=== PATIENT | male | born 1940 | race Caucasian/White ===

== ENCOUNTER 2019-11-04 07:46 | Outpatient (CLI) | payer OTHER, SELFPAY ==
--- NOTE | 2019-11-04 07:52 | MR_ITS ---
WS: [id number] MRCP (MAGNETIC RESONANCE CHOLANGIOPANCREATOGRAPHY) HISTORY: F/U ON PANCREATIC MASS COMPARISON: 03/18/2019, 03/09/2018 TECHNIQUE: Multiple sequences are performed to evaluate the intra and extrahepatic ducts. Slightly lobulated cystic pancreatic duct lesion is again identified extending superiorly from the ma in body of the pancreas with connection to the main pancreatic duct. Cystic lesion measures 2.1 x 1.1 x 1.3 cm and is unchanged. There is mild beading and dilatation of the remaining pancreatic duct ita ecially distally. No new or increasing pancreatic cystic or solid masses. No bile duct dilatation. Co mmon bile duct is normal caliber. No intrahepatic duct dilatation. Liver is normal size. There is a c yst in the RIGHT lobe of the liver measuring 1.0 cm. Bilateral renal cysts have been previously descr ibed. The largest in the lower pole of the RIGHT kidney measures 3.0 cm diameter. No solid masses or obstruction. Abdominal aorta is tortuous and crosses to the RIGHT of midline. Atherosclerosis with no aneurysm. Th ere is no ascites or adenopathy appreciated. No pleural effusions. The visualized gallbladder is nega tive for acute inflammatory process. MR/MR MRCP [id number] IMPRESSION: 1. 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 Stable since the ost recent study but mildly more prominent since 03/09/2018. 2. Benign hepatic and renal cysts.
== END 2019-11-04 07:47 | disposition home or self-care (01) ==
LOC: RADSHAW 07:48
PROVIDERS: PCP Emergency Medicine Emergency Medical Services; Visit Provider Emergency Medicine Emergency Medical Services
DX: K86.89 Other specified diseases of pancreas (principal); N28.1 Cyst of kidney, acquired; K76.89 Other specified diseases of liver
CPT/HCPCS: 74181

== ENCOUNTER 2020-06-07 08:18 | Outpatient (CLI) | payer OTHER, SELFPAY ==
--- NOTE | 2020-06-07 08:39 | CT_ITS ---
WS: [id number] CT CHEST WITH INTRAVENOUS CONTRAST HISTORY: 3 MONTH FOLLOWUP, lung nodules. TECHNIQUE: Contiguous 5 mm axial imaging performed on the thorax. Coronal and sagittal reformats are submitted. All CT scans at [facility] use at least one of these dose optimization techniq ues: automated exposure control; mA and/or kV adjustment per patient size (includes targeted exams wh ere dose is matched to clinical indication); or iterative reconstruction. CONTRAST: Omnipaque 300; 95 mL IV. DLP: 758.11 mGycm COMPARISON: 08/04/2018, Lungs and central airway: Moderate pulmonary hyperexpansion from emphysema. No pneumonia or suspiciou s pulmonary nodules. There are a few areas of mild distal airways thickening. Pleura: Normal. No pleural effusion. Heart and pericardium: Normal size heart with no pericardial effusion. Mediastinum and belén: No mediastinal or hilar adenopathy. Very mild thickening of the esophagus may b e from reflux disease. Vessels: Mild ectasia and dilatation of aorta. Ascending aorta maximum diameter 4.2 cm is unchanged s baljit 2018. There are a few scattered calcified plaques within the aorta. Pulmonary artery size is nor mal. Chest wall and lower neck: No soft tissue masses. Upper abdomen: Bilateral renal cysts. The largest renal cyst on the LEFT is 2.0 cm. Hepatic cyst in t he RIGHT lobe measures 1.2 cm. Visualized gallbladder is negative. No adrenal mass. Mild atrophy of t he pancreas with calcifications. The entire pancreas is not visualized. Again noted is a small cyst e xtending above the pancreas may may be from intraductal papillary mucinous neoplasm. No change. Osseous structures: Straightening of the normal thoracic kyphosis. CT/CT chest w con* [id number] IMPRESSION: 1. Chronic emphysema. No pulmonary mass or pneumonia. No nodules. 2. Mild ectasia and dilatation of the descending thoracic aorta. Maximum diame ter 4.2 cm which is stable. 3. Bilateral renal cysts and hepatic cyst. 4. Mild esophageal wall thickening is probably from reflux disease.
[2020-06-07] MEDS: iohexol 300 mg/mL 100 mL Btl IV (09:04)
== END 2020-06-07 08:19 | disposition home or self-care (01) ==
LOC: RADWPI 08:18
PROVIDERS: PCP Emergency Medicine Emergency Medical Services; Visit Provider Emergency Medicine Emergency Medical Services
DX: R91.8 Other nonspecific abnormal finding of lung field (principal); J43.9 Emphysema, unspecified; I77.810 Thoracic aortic ectasia; Q61.02 Congenital multiple renal cysts; K76.89 Other specified diseases of liver
CPT/HCPCS: 71260; Q9967

== ENCOUNTER 2020-06-22 10:27 | Emergency (ER) | payer OTHER, SELFPAY ==
[2020-06-22 10:37] VITALS: BP 153/91; PULSE 114; RESP 16; TEMP 36.4; O2SAT 93; BMI 24.1
[2020-06-22 10:42] VITALS: BP 153/91; PULSE 91; RESP 16; O2SAT 96
[2020-06-22] MEDS: sodium chloride 0.9% 1,000 ML 999 ML IV (10:57)
[2020-06-22 11:01] VITALS: BP 155/90; PULSE 81; RESP 16; O2SAT 97
[2020-06-22 11:06] LABS: Basophils # 0.1 10^3/uL (0.0-0.1); Basophils % 0.8 %; Eosinophils # 0.3 10^3/uL (0.0-0.8); Eosinophils % 2.4 %; Hematocrit 46.4 % (42.0-52.0); Hemoglobin 15.7 g/dL (11.7-16.6); Lymphocytes # 0.8 10^3/uL (0.8-4.8); Lymphocytes % 7.4 %; Mean Corpuscular HGB Conc 33.8 g/dL (30.0-36.0); Mean Corpuscular Hemoglobin 30.7 pg (28.0-34.0); Mean Corpuscular Volume 90.6 fL (80-94); Mean Platelet Volume 11.4 fL (7.4-10.4); Monocytes # 0.9 10^3/uL (0.2-0.9); Monocytes % 8.8 %; Neutrophils # 8.42 10^3/uL (1.8-7.7); Neutrophils % 80.3 %; Nucleated Red Blood Cells % 0 %; Platelet Count 200 10^3/cmm (130-400); Red Blood Count 5.12 10^6/uL (4.1-5.3); Red Cell Distribution Width 13.4 % (12.1-15.1); White Blood Count 10.5 10^3/uL (4.0-10.0)
--- NOTE | 2020-06-22 11:31 | W.ED.MALEGU ---
HPI - Male Genitourinary General: Chief complaint: Urogenital-Male Stated complaint: blood in urine Time Seen by Provider: 06/22/20 10:36 History of Present Illness: HPI Narrative: This patient is a 79 year old male presenting with hematuria. He has no pain. He says this started yesterday and has gotten worse today. No dysuria. No fever. Onset (ago): day(s) (2) Associated symptoms: Reports hematuria; Deny nausea or vomiting Review of Systems General: Reports: 10 or more systems reviewed and unremarkable except in HPI and below Const: Denies: fever(s), chills, fatigue or malaise Eyes: Denies: change in vision ENMT: Denies: odynophagia Card: Denies: chest pain or swelling of feet/ankles Resp: Denies: dyspnea, productive cough or non-productive cough GI: Denies: abdominal pain, nausea or vomiting : Reports: hematuria Musc: Denies: neck pain or back pain Skin/Breast: Denies: rash Neuro: Reports: headache(s) (history of frequent severe headaches); Denies: numbness in extremities or weakness in extremities Marcus/Lymph: Denies: easy bruising or easy bleeding Physical Exam Const: COMMON NORMALS: no acute distress, patient oriented x3, no limitations and alert GENERAL APPEARANCE: cooperative and comfortable HENMT: HEAD & SCALP: normal to inspection FACE & SINUS: normal facial exam Eye: GENERAL EYE: appearance normal, both eyes and all related structures Neck/C-Spine: COMMON NORMALS: supple, no meningeal signs and no JVD Chest: COMMONS NORMALS: normal inspection of the chest Resp: COMMON NORMALS: normal respiratory effort, No use of accessory muscles and clear to auscultation bilaterally AUSCULTATION: clear to auscultation bilaterally Cardio: COMMON NORMALS: no JVD, regular rate, regular rhythm and No murmurs present (Cardio) RATE: regular rate RHYTHM: regular rhythm GI: COMMON NORMALS: Normal to inspection, nondistended, normoactive bowel sounds present, Soft to palpation and non-tender INSPECTION: Yes normal to inspection AUSCULTATION: Yes normoactive bowel sounds PALPATION: Yes Soft to palpation Back/Pelvis: COMMON NORMALS: thoracic and lumbar spine normal to inspection Extremity: COMMON NORMALS: normal to inspection Neuro: COMMON NORMALS: patient oriented x3, moves all extremities, no focal motor deficits and no sensory deficits noted SENSORIUM/ORIENTATION: Yes alert MENINGEAL SIGNS: Yes no meningeal signs Psych: COMMON NORMALS: mental status grossly normal, cooperative and normal affect Skin: COMMON NORMALS: no rashes or lesions noted and turgor normal GENERAL SKIN EXAM: no rashes or lesions noted and turgor normal Course ED course: Patient stable. Urine shows blood - perhaps mild infection. CT ordered initially but patient did not want to stay for that. He wanted to go home and follow up with his PCP. Also given referral to urology. Vital Signs: Vital signs: Vital Signs Temperature 97.5 F L 06/22/20 10:37 Pulse Rate 78 06/22/20 14:16 Respiratory Rate 20 H 06/22/20 14:16 Blood Pressure 134/99 06/22/20 14:16 Pulse Oximetry 96 06/22/20 14:16 MDM - Male Lab Data: Labs: Lab Results 06/22/20 06/22/20 06/22/20 Range/Units 10:57 10:57 10:57 WBC 10.5 H (4.0-10.0) 10^3/ uL RBC 5.12 (4.1-5.3) 10^6/u L Hgb 15.7 (11.7-16.6) g/dL Hct 46.4 (42.0-52.0) % MCV 90.6 (80-94) fL MCH 30.7 (28.0-34.0) pg MCHC 33.8 (30.0-36.0) g/dL RDW 13.4 (12.1-15.1) % Plt Count 200 (130-400) 10^3/c mm MPV 11.4 H (7.4-10.4) fL Neut % (Auto) 80.3 % Lymph % (Auto) 7.4 % Crenshaw % (Auto) 8.8 % Eos % (Auto) 2.4 % Baso % (Auto) 0.8 % Neut # (Auto) 8.42 H (1.8-7.7) 10^3/u L Lymph # (Auto) 0.8 (0.8-4.8) 10^3/u L Crenshaw # (Auto) 0.9 (0.2-0.9) 10^3/u L Eos # (Auto) 0.3 (0.0-0.8) 10^3/u L Baso # (Auto) 0.1 (0.0-0.1) 10^3/u L Nucleated RBC % (a uto) 0 % Nucleated RBCs # 0.0 /100WBC PT 14.50 (12.1-14.9) SECO NDS INR 1.09 (0.8-1.2) Sodium 140 (136-145) mmol/L Potassium 4.2 (3.5-5.1) mmol/L Chloride 104 (98-107) mmol/L Carbon Dioxide 27 (22-29) mmol/L Anion Gap 13.2 (5-19) BUN 15 (8-23) mg/dL Creatinine 0.7 (0.7-1.2) mg/dL GFR Calculation Not Reportable Glucose 135 H (65-115) mg/dL Calculated Osmolal ity 293 (285-295) mOsm/k g Calcium 9.5 (8.5-10.5) mg/dL Total Bilirubin 0.4 (0.15-1.2) mg/dL AST 12 (0-40) U/L ALT 11 (0-41) U/L Alkaline Phosphata se 80 (40-130) IU/L Total Protein 7.3 (6.6-8.7) g/dL Albumin 4.2 (3.5-5.2) g/dL Globulin 3.1 (1.3-4.6) g/dL Urine Color (Yellow) Urine Appearance (CLEAR) Urine pH (5-7) Ur Specific Gravit y (1.005-1.030) Urine Protein (Negative) Urine Glucose (UA) (Normal) Urine Ketones (Negative) Urine Blood (Negative) Urine Nitrate (Negative) Urine Bilirubin (Negative) Urine Urobilinogen (Negative) mg/dL Ur Leukocyte Kanchan ase (Negative) Urine RBC (0-2) /hpf Urine WBC (0-5) /hpf Ur Squamous Epith Cells (0-5) /hpf Amorphous Sediment Urine Bacteria (NONE) /hpf 06/22/ Range/Units 11:25 WBC (4.0-10.0) 10^3/ uL RBC (4.1-5.3) 10^6/u L Hgb (11.7-16.6) g/dL Hct (42.0-52.0) % MCV (80-94) fL MCH (28.0-34.0) pg MCHC (30.0-36.0) g/dL RDW (12.1-15.1) % Plt Count (130-400) 10^3/c mm MPV (7.4-10.4) fL Neut % (Auto) % Lymph % (Auto) % Crenshaw % (Auto) % Eos % (Auto) % Baso % (Auto) % Neut # (Auto) (1.8-7.7) 10^3/u L Lymph # (Auto) (0.8-4.8) 10^3/u L Crenshaw # (Auto) (0.2-0.9) 10^3/u L Eos # (Auto) (0.0-0.8) 10^3/u L Baso # (Auto) (0.0-0.1) 10^3/u L Nucleated RBC % (a uto) % Nucleated RBCs # /100WBC PT (12.1-14.9) SECO NDS INR (0.8-1.2) Sodium (136-145) mmol/L Potassium (3.5-5.1) mmol/L Chloride (98-107) mmol/L Carbon Dioxide (22-29) mmol/L Anion Gap (5-19) BUN (8-23) mg/dL Creatinine (0.7-1.2) mg/dL GFR Calculation Glucose (65-115) mg/dL Calculated Osmolal ity (285-295) mOsm/k g Calcium (8.5-10.5) mg/dL Total Bilirubin (0.15-1.2) mg/dL AST (0-40) U/L ALT (0-41) U/L Alkaline Phosphata se (40-130) IU/L Total Protein (6.6-8.7) g/dL Albumin (3.5-5.2) g/dL Globulin (1.3-4.6) g/dL Urine Color Red (Yellow) Urine Appearance Turbid (CLEAR) Urine pH 5 (5-7) Ur Specific Gravit y 1.020 (1.005-1.030) Urine Protein 1+ H (Negative) Urine Glucose (UA) Norm (Normal) Urine Ketones Negative (Negative) Urine Blood 3+ H (Negative) Urine Nitrate Negative (Negative) Urine Bilirubin Neg (Negative) Urine Urobilinogen Norm (Negative) mg/dL Ur Leukocyte Kanchan ase Negative (Negative) Urine RBC Too numerous to c nt H (0-2) /hpf Urine WBC None (0-5) /hpf Ur Squamous Epith Cells 0-4 H (0-5) /hpf Amorphous Sediment Not Reportable Urine Bacteria 1+ H (NONE) /hpf Discharge Plan Discharge Patient Disposition: Home Clinical Impression: Hematuria of unknown cause Condition: Stable Prescriptions: New Cipro 500 mg tablet 500 mg PO BID Qty: 20 RF: 0 hydrocodone-acetaminophen 5-325 mg tablet 1 tab PO Q6H PRN (Reason: pain) Qty: 14 RF: 0 Discharge Orders: Discharge ED (Routine); Ordered 06/22/20 Ordered By: Aaliyah Guzmán Referrals: Kumar Richardson MD [Physician] - Tyshawn Jeffries DO [Primary Care Provider] - Discharge Diet: Usual diet Discharge Activity: Resume usual activity Patient Instructions: Acute Hematuria (ED), Opioid Safety Activity Restrictions/Additional Instructions: Stop taking aspirin, excedrin, ibuprofen as these can increase bleeding. Follow up with Dr. Jeffries or Dr. Richardson for further evaluation of the bleeding. Return to the ED if fever, difficulty urinating, back or abdominal pain or any other new or concerning symptoms. Coding Level of Care Code ED Client Server Programmer for Krish Sykes
[2020-06-22 11:37] VITALS: BP 132/79; PULSE 73; O2SAT 95
[2020-06-22 11:40] LABS: INR 1.09 (0.8-1.2)
[2020-06-22 11:59] LABS: Alanine Aminotransferase 11 U/L (0-41); Albumin Level 4.2 g/dL (3.5-5.2); Alkaline Phosphatase 80 IU/L (40-130); Anion Gap 13.2 (5-19); Aspartate Amino Transferase 12 U/L (0-40); Blood Urea Nitrogen 15 mg/dL (8-23); Calcium 9.5 mg/dL (8.5-10.5); Carbon Dioxide 27 mmol/L (22-29); Chloride 104 mmol/L (98-107); Globulin 3.1 g/dL (1.3-4.6); Glucose 135 mg/dL (65-115); Osmolality Calculated 293 mOsm/kg (285-295); Potassium 4.2 mmol/L (3.5-5.1); Sodium 140 mmol/L (136-145); Total Bilirubin 0.4 mg/dL (0.15-1.2); Total Protein 7.3 g/dL (6.6-8.7)
[2020-06-22 13:06] LABS: Add Urine Microscopic? YES; Bilirubin Urine Neg (Negative); Blood Urine 3+ (Negative); Glucose Urine UA Norm (Normal); Ketones Urine Negative (Negative); Leukocyte Esterase Urine Negative (Negative); Nitrate Urine Negative (Negative); Protein Urine 1+ (Negative); Urine Appearance Turbid (CLEAR); Urine Color Red (Yellow); Urobilinogen Urine Norm (Negative); pH Urine 5 (5-7)
[2020-06-22 13:22] LABS: Bacteria Urine 1+ /hpf; RBC Urine TOO NUMEROUS TO CNT /hpf (0-2); Squamous Epithelial Cell Urine 0-4 /hpf (0-5)
[2020-06-22 13:23] LABS: Add Urine Culture? Yes
[2020-06-22 14:16] VITALS: BP 134/99; PULSE 78; RESP 20; O2SAT 96
== END 2020-06-22 14:14 | disposition home or self-care (01) ==
PROVIDERS: Emergency Provider Emergency Medicine; PCP Emergency Medicine Emergency Medical Services
DX: R31.9 Hematuria, unspecified (principal)
CPT/HCPCS: 80053; 81001; 85025; 85610; 87086; 96360; 99283; J7030

== ENCOUNTER 2020-07-07 13:09 | Outpatient (CLI) | payer OTHER, SELFPAY ==
--- NOTE | 2020-07-07 13:15 | CT_ITS ---
WS: [id number] CT scan of the abdomen and pelvis without Oral and IV contrast. Additional two-dimensional coronal a nd sagittal reconstruction was performed. 07/07/2020 Clinical Data: HEMATURIA Comparison: MRCP, 11/04/2019. DLP: 1067.[address] scans at [facility] use at least one of these dose optimization techniques: automat ed exposure control; mA and/or kV adjustment per patient size (includes targeted exams where dose is matched to clinical indication); or iterative reconstruction. Findings: The lower lungs show no nodules, masses or effusions. The liver, gallbladder, spleen and adrenal glands are normal. The small cystic structure superior to the main body of the pancreas is identified and measures 1.6 cm. The kidneys show bilateral nonobstructing central renal calculi and bilateral renal cysts. The larges t cyst at the inferior pole of the right kidney is 3.0 cm. The abdominal aorta is atherosclerotic with a largest diameter of 2.5 cm with calcification in the wa ll. No appendicitis or diverticulitis is seen. The stomach, small bowel and colon show no abnormaliti es. There is a large amount of fecal material in the colon. No abscess, adenopathy, ascites, mass, ob struction or free air is seen. The bladder is unremarkable. The prostate is enlarged. No inguinal her brook is seen. The bones of the lower thorax, lumbar spine, pelvis, and hips show osteoarthritic change and degenera tive disc narrowing of the lumbar spine. There is a dextroscoliosis of the lumbar spine and right hip narrowing.. CT/CT kidney stone [id number] Impression: 1. Small bilateral nonobstructing renal calculi and bilateral renal cysts. 2. No change in cystic structure of the body of the pancreas. 3. Negative for acute intra-abdominal or pelvic abnormalities.
== END 2020-07-07 13:10 | disposition home or self-care (01) ==
PROVIDERS: PCP Emergency Medicine Emergency Medical Services; Visit Provider Emergency Medicine Emergency Medical Services
DX: R31.9 Hematuria, unspecified (principal); N20.0 Calculus of kidney; Q61.02 Congenital multiple renal cysts
CPT/HCPCS: 74176

== ENCOUNTER 2020-09-25 07:48 | Outpatient (CLI) | payer OTHER, SELFPAY ==
--- NOTE | 2020-09-25 08:00 | XRR_ITS ---
PROCEDURE INFORMATION: Exam: XR Abdomen Exam date and time: 09/25/2020 8:00 AM Age: 80 years old Clinical indication: Condition or disease; Kidney or ureter condition; Calculus (stone) in kidney; Additional info: Bilateral kidney stones TECHNIQUE: Imaging protocol: XR of the abdomen. Views: Frontal supine view of the abdomen. 1 View. COMPARISON: MR MRCP [id number] 11/04/2019 8:12 AM FINDINGS: Gastrointestinal tract: See Organs finding. Organs: Multiple calcifications project on the left kidney measuring up to 4 mm in diameter. These were seen on a previous CT scan. The right kidney is obscured by bowel contents. No definite ureteral calculi are seen. There is a phlebolith in the right lower pelvis. Bones/joints: Chronic degenerative changes are present in the spine with sclerosis disc space narrowing and osteophytes. XR/XR KUB [id number] IMPRESSION: 1. Left nephrolithiasis. The right kidney is obscured by bowel contents. 2. 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
== END 2020-09-25 07:49 | disposition home or self-care (01) ==
LOC: RAD 07:50
PROVIDERS: PCP Emergency Medicine Emergency Medical Services; Visit Provider Urology
DX: N20.0 Calculus of kidney (principal); Z20.822 Contact with and (suspected) exposure to COVID-19; M47.9 Spondylosis, unspecified
CPT/HCPCS: 74018; 81003; 87635

== ENCOUNTER 2020-09-29 11:16 | Day surgery (SDC) | payer OTHER, SELFPAY ==
[2020-09-28 15:03] VITALS: BMI 24.4
[2020-09-29 11:41] VITALS: BP 115/87; PULSE 101; RESP 20; TEMP 36.7; O2SAT 97
[2020-09-29] MEDS: sodium chloride 0.9% 1,000 ML 30 ML IV (11:48)
--- NOTE | 2020-09-29 13:07 | P.HPUD_ITS ---
Surgery/Procedure H&P Update DATE OF PROCEDURE: September 29, 2020 DATE H&P PERFORMED: 09/25/20 H&P UPDATE INFORMATION: I have reviewed H&P completed within last 30 days, I have examined patient prior to procedure and H&P is in [facility] [place] EMR on date indicated CHANGES TO PREVIOUS DOCUMENTATION: Reviewed the procedure again. No questions PREOP DIAGNOSIS: Cystolithiasis PLANNED PROCEDURE: Operation Date: 09/29/20 13:00 Proposed Procedures p Cystolitholapaxy 74162 n21.0(Not Applicable) - Kumar Richardson MD s Cystoscopy(Not Applicable) - Kumar Richardson MD
[2020-09-29] MEDS: levofloxacin-dextrose 5 % 500 MG/100 ML PREMIX 100 MG IV (13:09)
--- NOTE | 2020-09-29 13:14 | ANES.PREANE2 ---
Pre-Anesthetic Assessment Pre-Anesthetic Assessment: Height/Weight: Height 1.8 m Weight 79.379 kg Temp Pulse Resp BP Pulse Ox 98.1 F 101 H 20 H 115/87 97 09/29/20 11:41 09/29/20 11:41 09/29/20 11:41 09/29/20 11:41 09/29/20 11:41 Preop Diagnosis: Cystolithiasis Proposed Procedure: Operation Date: 09/29/20 13:00 Proposed Procedures p Cystolitholapaxy 42772 n21.0(Not Applicable) - Kumar Rihcardson MD s Cystoscopy(Not Applicable) - Kumar Richardson MD Was Beta Xavier taken within 24 hours: N/A Was Clonidine taken within 24 hours: N/A Last intake: Intake Last Liquid Date 09/29/20 Last Liquid Time 04:00 Last Solid Date 09/28/20 Last Solid Time 00:00 Social: Social History: Tobacco and No alcohol Exam: Pre-Anes Outpt Exam: alert, oriented x 3 and regular rate & rhythm Airway: Cervical ROM: WNL MP: 2 Dentition: Chipped and Loose Additional comments: Very poor dentition Pulmonary: Pulmonary: COPD : Comments: BPH, hematuria Musc/skel: Musc/skel: OA/DJD Anesthetic Plan: ASA status: 3 Anesthesia: General Risk of > 500 ml blood loss (7ml/kg in children): No Meds/Allergies Current Medications: Current Medications Generic Name Dose Route Start Last Admin Trade Name Freq PRN Reason Stop Dose Admin Sodium Chloride 1,000 mls @ 30 ml s/hr 09/29/20 11:30 09/29/20 11:48 Sodium Chloride 0.9% IV 09/30/20 11:29 30 mls/hr .Q24H AVIVA Administration PFSH Anesthesia PFSH: Medical History (Updated 09/25/20 @ 09:28 by Kumar Richardson MD) Ascending aorta dilatation Bilateral renal cysts Bilateral renal stones Bladder stone BPH loc w urin obs/LUTS Carotid stenosis Hyperlipemia Hypertension Personality disorder Surgical History (Updated 09/25/20 @ 09:05 by Kumar Richardson MD) History of right knee joint replacement Family History Brother Diabetes Father , IN LATE 80'S No problems noted. Mother , AT AGE 63 Cancer BRAIN TUMOR OPERATION Denies family history of CAD (coronary artery disease) Psychiatric illness Suicide Family history of premature coronary artery disease Hypertension Stroke Social History Smoking and tobacco status: former smoker (QUIT 30 YEARS AGO) Quit status (tobacco): has quit using tobacco Year quit tobacco: 1967 Second hand smoke exposure: Yes () Alcohol intake: former Year of sobriety/quit date alcohol: 4 Former alcohol use details: QUIT 1964 Household members: spouse Marital status: Number of children: 0 service: Yes Current occupational status: disabled History of recent travel: No Data Anesthesia Cardiac Studies: No Data to Display
--- NOTE | 2020-09-29 13:49 | PM.OP ---
Operative Report Date of procedure: September 29, 2020 Pre-op Diagnosis: Cystolithiasis Post-op Diagnosis: No residual stone. Presumed spontaneous passage Procedure Done: Cystoscopy under anesthesia Specimens removed/disposition: None Pathology: none sent Surgeon: Debra Anesthesia: General Estimated blood loss: Minimal Urine output: Not measured Complications: None Findings: The small stone seen in the clinic was no longer present in the bladder. Presumption is spontaneous passage although he was unaware of that. Condition: stable Disposition: PACU Brief History: Mr. Alvarado is a delightful 80-year-old white male recently evaluated for gross [facility] scan showed no gross upper urinary tract abnormality and cystoscopy in the clinic showed a small bladder stone. He was admitted for cystolitholapaxy or removal of bladder stone intact pending size assessment. Procedure: After routine preoperative evaluation examination and obtaining of informed consent he was taken to the operating suite on 09/29/20 where general anesthesia was administered without difficulty after appropriate timeout was performed, SCDs confirmed to be functioning, preoperative antibiotics administered, beta-gina protocol confirmed. Prepped and draped in usual sterile fashion in dorsolithotomy position paying careful attention to avoiding pressure points. 21 Turkish cystoscope with 30 degree lens was introduced into the urethral meatus and advanced into the bladder under videoscopy. The bladder was systematically examined both 30 and 70 degree lens and the stone was not seen. Flexible cystoscope was then utilized in both direct and retroflexed position and the finding of no stone was confirmed. The patient was unaware of having passed the stone but obviously he must have. After final reinspection with 30 and 70 degree lens the procedure was completed. The bladder was drained. Tolerated procedure well without complications and was awakened in the operating room and returned to the recovery room in stable condition. PLANS: 1. Discharge from outpatient surgery is anticipated today 2. Follow-up in 6 months with [facility]
[2020-09-29 13:54] VITALS: BP 132/74; PULSE 94; RESP 16; TEMP 36.3; O2SAT 98
[2020-09-29 14:00] VITALS: BP 111/83; PULSE 85; RESP 17; O2SAT 97
[2020-09-29 14:05] VITALS: BP 114/80; PULSE 77; RESP 18; O2SAT 98
[2020-09-29 14:10] VITALS: BP 127/87; PULSE 77; RESP 16; TEMP 36.4; O2SAT 98
[2020-09-29 14:38] VITALS: BP 118/80; PULSE 78; RESP 18; TEMP 36.4; O2SAT 98
--- NOTE | 2020-09-29 15:28 | ANE.PACU2 ---
Inpatient post-anesthesia follow up: Airway intact: Yes Vital signs: Temperature 97.6 F Pulse Rate 78 Respiratory Rate 18 Blood Pressure 118/80 Pulse Oximetry 98 Oxygen Delivery Me thod Room Air Oxygen Flow Rate 8 Fraction of Inspir ed Oxygen Hydration adequate: Yes Nausea and vomiting: No Pain level: 1 Mental status: Baseline
== END 2020-09-29 14:45 | disposition home or self-care (01) ==
PROVIDERS: PCP Emergency Medicine Emergency Medical Services; Visit Provider Urology
PROC: 0TJB8ZZ Inspection of Bladder, Via Natural or Artificial Opening Endoscopic (ICD-10-PCS; CPT 52000; 2020-09-29 13:00)
DX: N21.0 Calculus in bladder (principal); J44.9 Chronic obstructive pulmonary disease, unspecified; M19.90 Unspecified osteoarthritis, unspecified site; N40.1 Benign prostatic hyperplasia with lower urinary tract symptoms; N13.8 Other obstructive and reflux uropathy; E78.5 Hyperlipidemia, unspecified; I10 Essential (primary) hypertension; Z87.891 Personal history of nicotine dependence
CPT/HCPCS: 52000; J1956; J2405; J2704; J3010; J7030

== ENCOUNTER 2020-09-30 08:39 | Emergency (ER) | payer OTHER, SELFPAY ==
[2020-09-30 08:46] VITALS: BP 129/81; PULSE 108; RESP 20; TEMP 36.8; O2SAT 96; BMI 20.2
--- NOTE | 2020-09-30 08:54 | W.ED.DENTAL ---
HPI - Dental/Oral General: Chief complaint: Dental/Oral Stated complaint: DENTAL PAIN Time Seen by Provider: 09/30/20 08:45 History of Present Illness: HPI Narrative: Patient is a 80-year-old male comes to the ED with dental pain. Patient has been having dental pain for the past couple days. He describes his dental pain as throbbing and he rates it a 10 out of 10. It is located in the back lower right molar region. Denies any other symptoms. Patient is going to contact the dentist on Friday to be evaluated. Associated symptoms: Denies fever(s) or odynophagia Review of Systems Const: Denies: fever(s), chills or fatigue Eyes: Denies: change in vision or eye discomfort ENMT: Reports: dental pain (back bottom right molars); Denies: throat pain, odynophagia, nasal discharge or nasal congestion Card: Denies: chest pain, palpitations, edema, swelling of feet/ankles, dyspnea on exertion or orthopnea Resp: Denies: dyspnea, productive cough or non-productive cough GI: Denies: abdominal pain, nausea, vomiting, diarrhea, constipation or hematochezia : Denies: flank pain, difficulty urinating, dysuria or hematuria Musc: Denies: neck pain, back pain or extremity swelling Skin/Breast: Denies: rash or new lesions Neuro: Denies: headache(s), numbness in extremities or weakness in extremities PFS ED PFSH: Medical History Ascending aorta dilatation Bilateral renal cysts Bilateral renal stones Bladder stone BPH loc w urin obs/LUTS Carotid stenosis Hyperlipemia Hypertension Personality disorder Surgical History History of right knee joint replacement Family History Brother Diabetes Father , IN LATE 80'S No problems noted. Mother , AT AGE 63 Cancer BRAIN TUMOR OPERATION Denies family history of CAD (coronary artery disease) Psychiatric illness Suicide Family history of premature coronary artery disease Hypertension Stroke Social History Smoking and tobacco status: former smoker (QUIT 30 YEARS AGO) Quit status (tobacco): has quit using tobacco Year quit tobacco: 1967 Second hand smoke exposure: Yes () Alcohol intake: former Year of sobriety/quit date alcohol: 4 Former alcohol use details: QUIT 1964 Household members: spouse Marital status: Number of children: 0 service: Yes Current occupational status: disabled History of recent travel: No Physical Exam Const: COMMON NORMALS: no acute distress, patient oriented x3 and alert GENERAL APPEARANCE: cooperative and comfortable HENMT: COMMON NORMALS: normocephalic HEAD & SCALP: normocephalic MOUTH: Normal oral and palatal mucosa present TEETH & GINGIVA: Yes abnormal tooth and associated gingiva lower right third molar tender, with associated gingival edema and other (severe dental caries), Yes caries and Yes poor dentition THROAT: posterior oropharynx normal and uvula midline Neck/C-Spine: COMMON NORMALS: supple GENERAL: Yes normal visual inspection Resp: COMMON NORMALS: normal respiratory effort, No retractions, No use of accessory muscles and clear to auscultation bilaterally AUSCULTATION: clear to auscultation bilaterally Cardio: COMMON NORMALS: regular rate, regular rhythm, S1 normal heart sound present, S2 normal heart sound present, No gallops present (Cardio), No clicks present (Cardio), No murmurs present (Cardio) and Peripheral pulses 2+ throughout RATE: regular rate RHYTHM: regular rhythm HEART SOUNDS: S1 normal heart sound present and S2 normal heart sound present PERIPHERAL PULSES: Peripheral pulses 2+ throughout GI: COMMON NORMALS: Normal to inspection, nondistended, normoactive bowel sounds present, Soft to palpation, non-tender and no masses PALPATION: Yes Soft to palpation : COMMON NORMALS: Yes no CVA tenderness BLADDER/KIDNEY EXAM: Yes no CVA tenderness Back/Pelvis: COMMON NORMALS: no CVA tenderness Extremity: COMMON NORMALS: normal to inspection Neuro: COMMON NORMALS: patient oriented x3 and moves all extremities SENSORIUM/ORIENTATION: Yes alert Skin: GENERAL SKIN EXAM: dry skin Course Vital Signs: Vital signs: Vital Signs Temperature 98.3 F 09/30/20 08:46 Pulse Rate 90 09/30/20 09:15 Respiratory Rate 16 09/30/20 09:15 Blood Pressure 124/66 09/30/20 09:15 Pulse Oximetry 95 09/30/20 09:15 MDM - Dental/Oral MDM Narrative: Medical decision making narrative: Patient is a 80-year-old male comes the ED with dental pain. He has extensive dental caries and very poor dentition. He was discharged with a prescription for clindamycin and tramadol for pain. Return to ED precautions given. Patient is going to contact his dentist on Friday to get an appointment set up. Patient understood and agree with plan. Discharge Plan Discharge Patient Disposition: Home Clinical Impression: Pain due to dental caries Condition: Stable Prescriptions: New clindamycin HCl 150 mg capsule 300 mg PO QID 7 Days Qty: 56 RF: 0 No Action aspirin 325 mg tablet 975 mg PO DAILY PRN (Reason: pain) RF: 0 tamsulosin 0.4 mg capsule 0.4 mg PO QDAY Qty: 14 RF: 1 Discharge Orders: Discharge ED (Routine); Ordered 09/30/20 Ordered By: Jordan Bright Referrals: Tyshawn Jeffries, DO [Primary Care Provider] - Discharge Diet: Regular Discharge Activity: Resume usual activity Patient Instructions: Tramadol (By mouth), Dental Caries (ED) Activity Restrictions/Additional Instructions: Call and get scheduled with the dentist as soon as possible to get your dental pain evaluated. Take medications as prescribed. Return to the ER or your medical provider if condition worsens. Please read and understand discharge instructions. Thank you for choosing [facility] for your healthcare needs today. Please realize this is an emergency room and that we are providing you with a medical screening exam and this may not be complete and all inclusive of all the testing and or work up that you may need to determine your ailment or severity of your illness. It is very important that you follow up as instructed or that you return to the Emergency Department should you have concerns or if your condition changes or worsens in any way. Coding Level of Care Code ED Fancy Stitcher for Krish Sykes Exam Comprehensive
[2020-09-30] MEDS: clindamycin 150 mg Capsule 300 MG PO (09:05)
[2020-09-30] MEDS: HYDROcodone-acetaminophen 7.5-325 mg Tablet 1 TAB PO (09:05)
[2020-09-30 09:15] VITALS: BP 124/66; PULSE 90; RESP 16; O2SAT 95
== END 2020-09-30 09:15 | disposition home or self-care (01) ==
PROVIDERS: Emergency Provider Physician Assistant; PCP Emergency Medicine Emergency Medical Services
DX: K02.9 Dental caries, unspecified (principal); Z79.82 Long term (current) use of aspirin; E78.5 Hyperlipidemia, unspecified; I10 Essential (primary) hypertension; Z87.891 Personal history of nicotine dependence
CPT/HCPCS: 99283

== ENCOUNTER 2020-10-05 09:19 | Emergency (ER) | payer OTHER, SELFPAY ==
[2020-10-05 09:33] VITALS: BP 100/71; PULSE 119; RESP 20; TEMP 36.8; O2SAT 93; BMI 19.5
--- NOTE | 2020-10-05 10:35 | ED_ITS ---
HPI - Weakness General: Chief complaint: Weakness Stated complaint: N/v, Hot flashes, weak Time Seen by Provider: 10/05/20 10:23 History of Present Illness: HPI Narrative: 80-year-old male complaint of nausea vomiting hot flashes generally feeling weak. Patient was seen recently for dental infection was started on clindamycin he stopped taking because of this headache and stomach he denies any chest pain he has had some upper back pain which has been chronic. He also has some nausea and vomiting although it has improved since he stopped the clindamycin. MD Complaint: generalized weakness Onset (ago): day(s) Duration: intermittent Location: generalized Migration: none Severity: mild Relieving factors: none Exacerbating factors: none Associated symptoms: Reports chills and nausea; Denies chest pain, confusion, melena, decreased appetite, diaphoresis, dysuria, easy bruising, fever(s), headache(s), myalgias, rash, short of breath, syncope or vomiting Review of Systems Const: Reports: chills; Denies: fever(s) or diaphoresis ENMT: Denies: throat pain, ear or mastoid pain, nasal discharge or nasal congestion Card: Denies: chest pain or syncope Resp: Denies: dyspnea, productive cough or non-productive cough GI: Reports: nausea; Denies: vomiting or melena : Denies: dysuria Skin/Breast: Denies: rash or pruritus Neuro: Denies: headache(s) or confusion Marcus/Lymph: Denies: easy bruising PFSH ED PFSH: Medical History Ascending aorta dilatation Bilateral renal cysts Bilateral renal stones Bladder stone BPH loc w urin obs/LUTS Carotid stenosis Hyperlipemia Hypertension Personality disorder Surgical History History of right knee joint replacement Family History Brother Diabetes Father , IN LATE 80'S No problems noted. Mother , AT AGE 63 Cancer BRAIN TUMOR OPERATION Denies family history of CAD (coronary artery disease) Psychiatric illness Suicide Family history of premature coronary artery disease Hypertension Stroke Social History Smoking and tobacco status: former smoker (QUIT 30 YEARS AGO) Quit status (tobacco): has quit using tobacco Year quit tobacco: 1967 Second hand smoke exposure: Yes () Alcohol intake: former Year of sobriety/quit date alcohol: 4 Former alcohol use details: QUIT 1964 Household members: spouse Marital status: Number of children: 0 service: Yes Current occupational status: disabled History of recent travel: No Physical Exam Const: COMMON NORMALS: no acute distress GENERAL APPEARANCE: cooperative and comfortable ORIENTATION/CONSCIOUSNESS: Yes awake, Yes oriented to person, Yes oriented to place and Yes oriented to time HENMT: COMMON NORMALS: normocephalic, atraumatic and hearing grossly normal bilaterally HEAD & SCALP: normocephalic and atraumatic Neck/C-Spine: COMMON NORMALS: full ROM, no lymphadenopathy, supple and no JVD Lymph: LYMPHATIC: no lymphadenopathy noted and no lymphedema noted Resp: COMMON NORMALS: normal respiratory effort, No retractions and No use of accessory muscles AUSCULTATION: rhonchi and wheezes Cardio: COMMON NORMALS: no JVD, regular rate, regular rhythm and No murmurs present (Cardio) RATE: regular rate RHYTHM: regular rhythm GI: COMMON NORMALS: Soft to palpation and No hepatosplenomegaly present AUSCULTATION: Yes normoactive bowel sounds PALPATION: Yes Soft to palpation, No Tenderness to palpation present (GI), No Guarding due to palpation present (GI) and Yes No hepatosplenomegaly present Extremity: COMMON NORMALS: normal to inspection, capillary refill normal, no clubbing, cyanosis or edema, no calf tenderness and no pedal edema Neuro: SENSORIUM/ORIENTATION: Yes oriented to person, Yes oriented to place and Yes oriented to time Skin: COMMON NORMALS: no rashes or lesions noted GENERAL SKIN EXAM: no rashes or lesions noted Course Vital Signs: Vital signs: Vital Signs Temperature 98.2 F 10/05/20 09:33 Pulse Rate 78 10/05/20 14:18 Respiratory Rate 18 10/05/20 14:18 Blood Pressure 114/86 10/05/20 14:18 Pulse Oximetry 96 10/05/20 14:18 MDM - Weakness MDM Narrative: Medical decision making narrative: Patient is feeling somewhat better. We will switch him from clindamycin to Augmentin. Give Zofran to use as needed we will start him on Symbicort and albuterol as needed him follow-up with primary care doctor return if has worsening problems. Lab Data: Labs: Lab Results 10/05/20 10/05/20 Range/Units 10:52 10:52 WBC 10.7 H (4.0-10.0) 10^3/ uL RBC 5.42 H (4.1-5.3) 10^6/u L Hgb 16.2 (11.7-16.6) g/dL Hct 48.8 (42.0-52.0) % MCV 90.0 (80-94) fL MCH 29.9 (28.0-34.0) pg MCHC 33.2 (30.0-36.0) g/dL RDW 13.1 (12.1-15.1) % Plt Count 259 (130-400) 10^3/c mm MPV 11.9 H (7.4-10.4) fL Neut % (Auto) 74.9 % Lymph % (Auto) 11.7 % [place] % (Auto) 10.7 % Eos % (Auto) 1.7 % Baso % (Auto) 0.6 % Neut # (Auto) 8.01 H (1.8-7.7) 10^3/u L Lymph # (Auto) 1.3 (0.8-4.8) 10^3/u L [place] # (Auto) 1.1 H (0.2-0.9) 10^3/u L Eos # (Auto) 0.2 (0.0-0.8) 10^3/u L Baso # (Auto) 0.1 (0.0-0.1) 10^3/u L Nucleated RBC % (a uto) 0 % Nucleated RBCs # 0.0 /100WBC Sodium 139 (136-145) mmol/L Potassium 4.4 (3.5-5.1) mmol/L Chloride 103 (98-107) mmol/L Carbon Dioxide 25 (22-29) mmol/L Anion Gap 15.4 (5-19) BUN 15 (8-23) mg/dL Creatinine 0.8 (0.7-1.2) mg/dL GFR Calculation Not Reportable Glucose 110 (65-115) mg/dL Calculated Osmolal ity 289 (285-295) mOsm/k g Calcium 10.4 (8.5-10.5) mg/dL Total Bilirubin 0.5 (0.15-1.2) mg/dL AST 15 (0-40) U/L ALT 12 (0-41) U/L Alkaline Phosphata se 87 (40-130) IU/L Total Protein 6.9 (6.6-8.7) g/dL Albumin 4.4 (3.5-5.2) g/dL Globulin 2.5 (1.3-4.6) g/dL Discharge Plan Discharge Patient Disposition: Home Clinical Impression: Pain due to dental caries, COPD with acute exacerbation Condition: Stable Prescriptions: New Augmentin 875-125 mg tablet 1 tab PO BID Qty: 14 RF: 0 Symbicort 160-4.5 mcg/actuation HFA aerosol inhaler 2 inh inhalation BID Qty: 10.2 RF: 0 albuterol sulfate 90 mcg/actuation HFA aerosol inhaler 2 inh INHALATION Q4H PRN (Reason: shortness of breath or wheezing) Qty: 18 RF: 0 Discontinued clindamycin HCl 150 mg capsule 300 mg PO QID 7 Days Qty: 56 RF: 0 No Action aspirin 325 mg tablet 975 mg PO DAILY PRN (Reason: pain) RF: 0 tamsulosin 0.4 mg capsule 0.4 mg PO DAILY RF: 0 Discharge Orders: Discharge ED (Routine); Ordered 10/05/20 Ordered By: Tony Zazueta Referrals: Tyshawn Jeffries, DO [Primary Care Provider] - Discharge Diet: Usual diet Discharge Activity: Increase activity as tolerated Patient Instructions: Opioid Safety Activity Restrictions/Additional Instructions: Change antibiotic from clindamycin to Augmentin. Start Symbicort 2 puffs twice daily use albuterol as needed follow-up with your primary care doctor for COPD within the next 1 to 2 weeks. Coding Level of Care Code ED Project Management Manager for Krish Sykes
--- NOTE | 2020-10-05 10:36 | ECG_ITS ---
[facility] Test Date: 2020-10-05 Pat Name: Isiah Alvarado Department: Room: Gender: Male Heel Curver: : 1940 Requested By: Tony Cantu Order Number: [id number] Jose Juan MD: Homa Faulkner M.D. Measurements Intervals [place] Rate: 68 P: 76 KS: 169 QRS: 37 QRSD: 109 T: 48 QT: 409 QTc: 437 Interpretive Statements SINUS RHYTHM WITH SINUS ARRHYTHMIA Compared to ECG 04/30/2017 15:03:55 ST (T wave) deviation no longer present Electronically Signed On 10-06-2020 6:15:36 CDT by Homa Faulkner M.D. [email or web address]
[2020-10-05 10:37] VITALS: BP 125/83; PULSE 77; RESP 18; O2SAT 96
--- NOTE | 2020-10-05 10:37 | XR_ITS ---
WS: [id number] Portable AP upright chest, 10/05/2020 Clinical Data: dyspnea/cough Comparison: PA and lateral chest, 04/30/2017. Findings: No nodules, masses or effusions are seen. The heart is normal. The pulmonary vascularity is not increased. No pneumonia or pneumothorax is seen. The aortic arch and descending aorta show calci fication and tortuosity. The diaphragms are flattened. XR/XR chest 1V portable [id number] Impression: Atherosclerosis and hyperinflation.
[2020-10-05 11:02] LABS: Basophils # 0.1 10^3/uL (0.0-0.1); Basophils % 0.6 %; Eosinophils # 0.2 10^3/uL (0.0-0.8); Eosinophils % 1.7 %; Hematocrit 48.8 % (42.0-52.0); Hemoglobin 16.2 g/dL (11.7-16.6); Lymphocytes # 1.3 10^3/uL (0.8-4.8); Lymphocytes % 11.7 %; Mean Corpuscular HGB Conc 33.2 g/dL (30.0-36.0); Mean Corpuscular Hemoglobin 29.9 pg (28.0-34.0); Mean Platelet Volume 11.9 fL (7.4-10.4); Monocytes # 1.1 10^3/uL (0.2-0.9); Monocytes % 10.7 %; Neutrophils # 8.01 10^3/uL (1.8-7.7); Neutrophils % 74.9 %; Nucleated Red Blood Cells % 0 %; Platelet Count 259 10^3/cmm (130-400); Red Blood Count 5.42 10^6/uL (4.1-5.3); Red Cell Distribution Width 13.1 % (12.1-15.1); White Blood Count 10.7 10^3/uL (4.0-10.0)
[2020-10-05 11:08] VITALS: BP 102/78; BP 108/77; BP 119/76; PULSE 78; PULSE 83; PULSE 94
[2020-10-05 11:11] VITALS: BP 108/77; PULSE 83; RESP 16; O2SAT 94
[2020-10-05 11:19] LABS: Alanine Aminotransferase 12 U/L (0-41); Albumin Level 4.4 g/dL (3.5-5.2); Alkaline Phosphatase 87 IU/L (40-130); Anion Gap 15.4 (5-19); Aspartate Amino Transferase 15 U/L (0-40); Blood Urea Nitrogen 15 mg/dL (8-23); Calcium 10.4 mg/dL (8.5-10.5); Carbon Dioxide 25 mmol/L (22-29); Chloride 103 mmol/L (98-107); Creatinine Clr Calc Pharmacy 74.7475; Globulin 2.5 g/dL (1.3-4.6); Glucose 110 mg/dL (65-115); Osmolality Calculated 289 mOsm/kg (285-295); Potassium 4.4 mmol/L (3.5-5.1); Sodium 139 mmol/L (136-145); Total Bilirubin 0.5 mg/dL (0.15-1.2); Total Protein 6.9 g/dL (6.6-8.7)
[2020-10-05 12:18] VITALS: RESP 18; O2SAT 96
[2020-10-05] MEDS: sodium chloride 0.9% 1,000 ML 999 ML IV (12:18)
[2020-10-05] MEDS: morphine 4 mg/mL SDV 1 mL 2 MG IVP (12:18)
[2020-10-05] MEDS: ketorolac 30 mg/mL INJ 15 MG IVP (12:19)
[2020-10-05] MEDS: ondansetron 2 mg/ML SDV 2 mL 4 MG IVP (12:19)
[2020-10-05 14:18] VITALS: BP 114/86; PULSE 78; RESP 18; O2SAT 96
== END 2020-10-05 14:22 | disposition home or self-care (01) ==
PROVIDERS: Emergency Provider Family Medicine; PCP Emergency Medicine Emergency Medical Services
DX: J44.1 Chronic obstructive pulmonary disease with (acute) exacerbation (principal); K02.9 Dental caries, unspecified; Z79.82 Long term (current) use of aspirin; E78.5 Hyperlipidemia, unspecified; I10 Essential (primary) hypertension; Z87.891 Personal history of nicotine dependence
CPT/HCPCS: 71045; 80053; 85025; 87040; 93005; 96361; 96374; 96375; 99284; J1885; J2270; J2405; J7030

== ENCOUNTER 2021-05-14 13:56 | Outpatient (CLI) | payer OTHER, SELFPAY ==
--- NOTE | 2021-05-14 14:04 | XRR_ITS ---
PROCEDURE INFORMATION: Exam: XR Abdomen Exam date and time: 05/14/2021 2:04 PM Age: 80 years old Clinical indication: Condition or disease; Other: Bladder stone; Additional info: Bladder stone, kub abby 05/14/21 @ 2:00 pm appt to follow TECHNIQUE: Imaging protocol: XR of the abdomen. Views: Frontal supine view of the abdomen. 1 View. COMPARISON: CR XR KUB [id number] 09/25/2020 8:02 AM FINDINGS: Gastrointestinal tract: Normal. No bowel dilation. Bowel contents overlie both kidneys. Organs: Multiple caliceal stones seen in the projection of the left renal collecting system. The right kidney is obscured by bowel contents. Bones/joints: Lumbar spine osteoarthritis. Comparison to prior examination similar findings is seen peer XR/XR KUB [id number] IMPRESSION: 1. No acute GI abnormality. 2. Stable caliceal stone left kidney. 3. Right kidney is obscured by colon contents. 4. Lumbar spine osteoarthritis
== END 2021-05-14 13:57 | disposition home or self-care (01) ==
LOC: LAB 14:00
PROVIDERS: PCP Emergency Medicine Emergency Medical Services; Visit Provider Urology
DX: N21.0 Calculus in bladder (principal)
CPT/HCPCS: 74018; 81003

== ENCOUNTER 2021-07-26 08:00 | Emergency (ER) | payer OTHER, SELFPAY ==
[2021-07-26 08:12] VITALS: BP 144/90; PULSE 104; RESP 20; TEMP 36.6; O2SAT 95; BMI 20.9
--- NOTE | 2021-07-26 08:23 | CT_ITS ---
WS: [id number] CT HEAD NONCONTRAST HISTORY: headache TECHNIQUE: Contiguous axial imaging performed through the brain in 2.5 mm imaging. Bone and soft tiss ue windows. Sagittal and coronal reformats reviewed. All CT scans at [facility] use at least one of these dose optimization techniques: automated exposure control; mA and/or kV adjustment per pa tient size (includes targeted exams where dose is matched to clinical indication); or iterative recon struction. DLP: 994.29 mGy.cm COMPARISON: 01/18/2019 Bilateral chronic appearing subdural hygromas are small to moderate. The largest hygroma over the RIG HT cerebral convexity measures 8.3 mm and the LEFT measures 4.4 mm. No increased density or acute hamzah earing blood products. These hygromas were not present on 01/18/2019. There is no midline shift or si gnificant mass effect. Mild bilateral frontal lobe atrophy. Small lacunar infarct RIGHT caudate head. Ventricles: Normal size with no hydrocephalus. Paranasal sinuses: As visualized are clear. Mastoid air cells: Well pneumatized. Calvarium and scalp: No fracture. 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 CT/CT head wo con* [id number] IMPRESSION: 1. No acute intracranial hemorrhage. 2. New since 01/18/2019 are chronic appearing bilateral subdural hygromas. The largest over the RIGHT convexity measures 8.3 mm. 3. Mild bilateral frontal lobe atrophy.
--- NOTE | 2021-07-26 08:45 | ED_ITS ---
HPI - Fall General: Chief Complaint: Fall Stated Complaint: HEADACHE Time Seen by Provider: 07/26/21 08:06 Source: patient Mode of arrival: ambulatory Limitations: no limitations History of Present Illness: 80-year-old male brought in by EMS. He had called EMS to get his because she had not been getting out of bed for the last 2 weeks. While EMS was there he slipped and fell on some stairs and hurt his back is now complaining significant back pain. He is not able to take care of himself he is extremely disheveled. MD complaint: fall PFS ED PFSH: Medical History Ascending aorta dilatation Bilateral renal cysts Bilateral renal stones Bladder stone BPH loc w urin obs/LUTS Carotid stenosis Hyperlipemia Hypertension Personality disorder Surgical History History of right knee joint replacement Family History Brother Diabetes Father , IN LATE 80'S No problems noted. Mother , AT AGE 63 Cancer BRAIN TUMOR OPERATION Denies family history of CAD (coronary artery disease) Psychiatric illness Suicide Family history of premature coronary artery disease Hypertension Stroke Social History Smoking and tobacco status: former smoker (QUIT 30 YEARS AGO) Quit status (tobacco): has quit using tobacco Year quit tobacco: 1967 Second hand smoke exposure: Yes () Alcohol intake: former Year of sobriety/quit date alcohol: 4 Former alcohol use details: QUIT 1964 Household members: spouse Marital status: Number of children: 0 service: Yes Current occupational status: disabled History of recent travel: No Course Vital Signs: Vital signs: Vital Signs Temperature 97.9 F 07/26/21 08:12 Pulse Rate 104 H 07/26/21 08:12 Respiratory Rate 20 H 07/26/21 08:12 Blood Pressure 144/90 07/26/21 08:12 Pulse Oximetry 95 07/26/21 08:12 MDM - Fall Medical Decision Making No focal neurologic deficits are noted. No recent head trauma. He does have subdural hygromas discussed with radiology they do not appear acute. His hemoglobin is normal. We will go ahead and discharge him home his headache is improved we will have him follow-up with neurology for monitoring. Medical Records I reviewed the patient's medical records. Lab Data I reviewed the patient's lab results. : 07/26/21 08:22 07/26/21 08:[address] 07/26/21 08:23 IMPRESSION: 1. No acute intracranial hemorrhage. 2. New since 01/18/2019 are chronic appearing bilateral subdural hygromas. The largest over the RIGHT convexity measures 8.3 mm. 3. Mild bilateral frontal lobe atrophy. Laboratory Results WBC 7.0 10^3/uL (4.0-10.0) 07/26/21 08: RBC 5.01 10^6/uL (4.1-5.3) 07/26/21 08: Hgb 15.1 g/dL (11.7-16.6) 07/26/21 08: Hct 46.6 % (42.0-52.0) 07/26/21 08: MCV 93.0 fl (80-94) 07/26/21 08:22 MCH 30.1 pg (28.0-34.0) 07/26/21 08: MCHC 32.4 g/dL (30.0-36.0) 07/26/21 08: RDW 13.8 % (12.1-15.1) 07/26/21 08:22 Plt Count 255 10^3/cmm (130-400) 07/26/21 08: MPV 11.6 fL (7.4-10.4) H 07/26/21 08:22 Neut % (Auto) 67.3 % 07/26/21 08: Lymph % (Auto) 14.7 % 07/26/21 08: [place] % (Auto) 9.7 % 07/26/21 08: Eos % (Auto) 7.0 % 07/26/21 08: Baso % (Auto) 0.9 % 07/26/21 08:22 Neut # (Auto) 4.70 10^3/uL (1.8-7.7) 07/26/21 08:22 Lymph # (Auto) 1.0 10^3/uL (0.8-4.8) 07/26/21 08:22 [place] # (Auto) 0.7 10^3/uL (0.2-0.9) 07/26/21 08:22 Eos # (Auto) 0.5 10^3/uL (0.0-0.8) 07/26/21 08:22 Baso # (Auto) 0.1 10^3/uL (0.0-0.1) 07/26/21 08: Nucleated RBC % (auto) 0 % 07/26/21 08: Nucleated RBCs # 0.0 /100WBC 07/26/21 08:22 Sodium 140 mmol/L (136-145) 07/26/21 08:22 Potassium 3.8 mmol/L (3.5-5.1) 07/26/21 08: Chloride 104 mmol/L (98-107) 07/26/21 08: Carbon Dioxide 22 mmol/L (22-29) 07/26/21 08:22 Anion Gap 17.8 (5-19) 07/26/21 08:22 BUN 13 mg/dL (8-23) 07/26/21 08:22 Creatinine 0.7 mg/dL (0.7-1.2) 07/26/21 08:22 GFR Calculation Not Reportable 07/26/21 08: Glucose 115 mg/dL (65-115) 07/26/21 08:22 Calculated Osmolality 291 mOsm/kg (285-295) 07/26/21 08: Lactic Acid 1.0 mmol/L (0.5-2.2) 07/26/21 09:20 Calcium 8.8 mg/dL (8.5-10.5) 07/26/21 08:22 Total Bilirubin 0.3 mg/dL (0.15-1.2) 07/26/21 08:22 AST 26 U/L (0-40) 07/26/21 08: ALT 22 U/L (0-41) 07/26/21 08:22 Alkaline Phosphatase 74 IU/L (40-130) 07/26/21 08:22 Total Protein 7.1 g/dL (6.6-8.7) 07/26/21 08: Albumin 4.6 g/dL (3.5-5.2) 07/26/21 08:22 Globulin 2.5 g/dL (1.3-4.6) 07/26/21 08:22 Lipase 73 U/L (13-60) H 07/26/21 08:22 Urine Color Yellow (Yellow) 07/26/21 09:41 Urine Appearance Clear (CLEAR) 07/26/21 09:41 Urine pH 6 (5-7) 07/26/21 09:41 Ur Specific [place] 1.015 (1.005-1.030) 07/26/21 09:41 Urine Protein Neg (Negative) 07/26/21 09:41 Urine Glucose (UA) Norm (Normal) 07/26/21 09:41 Urine Ketones 1+ (Negative) H 07/26/21 09:41 Urine Blood Neg (Negative) 07/26/21 09:41 Urine Nitrate Negative (Negative) 07/26/21 09:41 Urine Bilirubin Neg (Negative) 07/26/21 09:41 Urine Urobilinogen Neg mg/dL (Negative) 07/26/21 09:41 Ur Leukocyte Esterase Negative (Negative) 07/26/21 09:41 Discharge Plan Discharge Patient Disposition: Home Clinical Impression: Subdural hygroma Condition: Stable Prescriptions: No Action cholecalciferol (vitamin D3) 25 mcg (1,000 unit) capsule 25 mcg PO DAILY 0RF ondansetron HCl 8 mg tablet 8 mg PO Q6H PRN (Reason: Nausea) 0RF Excedrin Extra Strength 250-250-65 mg tablet 1 tab PO Q6H PRN (Reason: Pain) 0RF tamsulosin 0.4 mg capsule 0.4 mg PO DAILY 0RF Rx Instructions: SEE PHARMACY COMMENT albuterol sulfate 90 mcg/actuation HFA aerosol inhaler 2 inh INHALATION Q4H PRN (Reason: shortness of breath or wheezing) Qty: 18 0RF Aspir-81 81 mg Tablet,Delayed Release (Dr/Ec) 81 mg PO DAILY 0RF Glucerna Therapeutic Nutrition Liquid 1 ea PO BID 0RF Discharge Orders: Discharge ED (Routine); Ordered 07/26/21 Ordered By: Tony Zazueta Referrals: Tyshawn Jeffries, DO [Primary Care Provider] - Discharge Diet: Usual diet Discharge Activity: Increase activity as tolerated Patient Instructions: Opioid Safety Activity Restrictions/Additional Instructions: Case management make a referral to neurology to further evaluate the subdural hygromas and monitor them. Coding Level of Care Code ED Certified Master Locksmith for Krish Sykes
[2021-07-26 08:49] LABS: Basophils # 0.1 10^3/uL (0.0-0.1); Basophils % 0.9 %; Eosinophils # 0.5 10^3/uL (0.0-0.8); Hematocrit 46.6 % (42.0-52.0); Hemoglobin 15.1 g/dL (11.7-16.6); Lymphocytes % 14.7 %; Mean Corpuscular HGB Conc 32.4 g/dL (30.0-36.0); Mean Corpuscular Hemoglobin 30.1 pg (28.0-34.0); Mean Platelet Volume 11.6 fL (7.4-10.4); Monocytes # 0.7 10^3/uL (0.2-0.9); Monocytes % 9.7 %; Neutrophils % 67.3 %; Nucleated Red Blood Cells % 0 %; Platelet Count 255 10^3/cmm (130-400); Red Blood Count 5.01 10^6/uL (4.1-5.3); Red Cell Distribution Width 13.8 % (12.1-15.1)
[2021-07-26] MEDS: promethazine 25 mg/mL SDV 1 mL IM (09:02)
[2021-07-26] MEDS: ketorolac 30 mg/mL INJ IVP (09:04)
[2021-07-26 09:08] LABS: Alanine Aminotransferase 22 U/L (0-41); Albumin Level 4.6 g/dL (3.5-5.2); Alkaline Phosphatase 74 IU/L (40-130); Anion Gap 17.8 (5-19); Aspartate Amino Transferase 26 U/L (0-40); Blood Urea Nitrogen 13 mg/dL (8-23); Calcium 8.8 mg/dL (8.5-10.5); Carbon Dioxide 22 mmol/L (22-29); Chloride 104 mmol/L (98-107); Globulin 2.5 g/dL (1.3-4.6); Glucose 115 mg/dL (65-115); Lipase 73 U/L (13-60); Osmolality Calculated 291 mOsm/kg (285-295); Potassium 3.8 mmol/L (3.5-5.1); Sodium 140 mmol/L (136-145); Total Bilirubin 0.3 mg/dL (0.15-1.2); Total Protein 7.1 g/dL (6.6-8.7)
--- NOTE | 2021-07-26 09:08 | PC.NURSE ---
PT states I wish I was not alive. Replied tell me why you feel that way. PT states I can't get my life together PT also states that he does not feel suicidal today but has felt that way in the past. PT also states he can not mention these feelings around his because she gets worked up.
--- NOTE | 2021-07-26 09:14 | PC.NURSE ---
Physician notified of PT additional complaints.
[2021-07-26 10:09] LABS: Add Urine Microscopic? NO; Charge for UA Resulting for Rev
[2021-07-26 10:14] LABS: Bilirubin Urine Neg (Negative); Blood Urine Neg (Negative); Glucose Urine UA Norm (Normal); Ketones Urine 1+ (Negative); Leukocyte Esterase Urine Negative (Negative); Nitrate Urine Negative (Negative); Protein Urine Neg (Negative); Specific Gravity, Urine 1.015 (1.005-1.030); Urine Appearance Clear (CLEAR); Urine Color Yellow (Yellow); Urobilinogen Urine Neg (Negative); pH Urine 6 (5-7)
[2021-07-26 11:37] VITALS: BP 152/96; PULSE 82; RESP 16; O2SAT 96
== END 2021-07-26 11:35 | disposition home or self-care (01) ==
PROVIDERS: Emergency Provider Family Medicine; PCP Emergency Medicine Emergency Medical Services
DX: G96.08 Other cranial cerebrospinal fluid leak (principal); I10 Essential (primary) hypertension; E78.5 Hyperlipidemia, unspecified; Z79.82 Long term (current) use of aspirin
CPT/HCPCS: 70450; 80053; 81003; 83605; 83690; 85025; 96372; 96374; 99283; J1885; J2550

== ENCOUNTER 2021-07-30 19:28 | Emergency (ER) | payer OTHER, SELFPAY ==
[2021-07-30 19:32] VITALS: RESP 18; TEMP 36.7; BMI 20.2
[2021-07-30 19:42] VITALS: BP 158/87; PULSE 58; RESP 18; O2SAT 95
--- NOTE | 2021-07-30 19:46 | CTR_ITS ---
PROCEDURE INFORMATION: Exam: CT Head Without Contrast Exam date and time: 07/30/2021 8:32 PM Age: 80 years old Clinical indication: Injury or trauma; Blunt trauma (contusions or hematomas); Patient HX: Tripped over his cane fall with right parietal bump. No loc TECHNIQUE: Imaging protocol: Computed tomography of the head without contrast. Radiation optimization: All CT scans at this facility use at least one of these dose optimization techniques: automated exposure control; mA and/or kV adjustment per patient size (includes targeted exams where dose is matched to clinical indication); or iterative reconstruction. COMPARISON: CT head wo con* [id number] 07/26/2021 9:52 AM RADIATION DOSE METRICS: Total DLP (mGy-cm): 949.7 FINDINGS: Brain: Bilateral frontoparietal chronic subdural hygromas have slightly decreased in size since the prior exam, now measuring up to 6 mm on the right and 4 mm on the left. Mild brain atrophy is appreciated. No acute hemorrhage or evidence of acute infarction. Cerebral ventricles: No ventriculomegaly. Paranasal sinuses: Visualized sinuses are unremarkable. No fluid levels. Mastoid air cells: Visualized mastoid air cells are well aerated. Bones/joints: Unremarkable. No acute fracture. Soft tissues: Unremarkable. CT/CT head wo con* [id number] IMPRESSION: No acute intracranial abnormality is seen. Mild decrease in size of bilateral frontoparietal chronic subdural hygromas.
--- NOTE | 2021-07-30 19:49 | ED_ITS ---
HPI - Fall General: Chief Complaint: Fall Stated Complaint: WEAKNESS Time Seen by Provider: 07/30/21 19:30 Source: patient Mode of arrival: ambulatory Limitations: no limitations History of Present Illness: 80-year-old male who states that he is got generalized weakness that is chronic he states been for years he walks with a cane states that today he had tripped and fell with his cane fell into the wall and hit his head. He states he had no loss consciousness but does have a headache he states that this happened at 6 PM 1 make sure to have any head injuries she denies any other pain denies neck pain. Associated symptoms-after fall: Reports headache(s); Denies abdominal pain, chest pain or neck pain Review of Systems Const: Denies: fever(s), chills, body aches or change in appetite Eyes: Denies: blurry vision or eye discomfort ENMT: Denies: throat pain or dental pain Card: Denies: chest pain Resp: Denies: dyspnea GI: Denies: abdominal pain, nausea, vomiting or diarrhea : Denies: dysuria Musc: Denies: neck pain or back pain Skin/Breast: Denies: rash Neuro: Reports: headache(s) Psych: Denies: depression Marcus/Lymph: Denies: easy bruising All/Imm: Denies: urticaria PFSH ED PFSH: Medical History Ascending aorta dilatation Bilateral renal cysts Bilateral renal stones Bladder stone BPH loc w urin obs/LUTS Carotid stenosis Hyperlipemia Hypertension Personality disorder Surgical History History of right knee joint replacement Family History Brother Diabetes Father , IN LATE 80'S No problems noted. Mother , AT AGE 63 Cancer BRAIN TUMOR OPERATION Denies family history of CAD (coronary artery disease) Psychiatric illness Suicide Family history of premature coronary artery disease Hypertension Stroke Social History Smoking and tobacco status: former smoker (QUIT 30 YEARS AGO) Quit status (tobacco): has quit using tobacco Year quit tobacco: 1967 Second hand smoke exposure: Yes () Alcohol intake: former Year of sobriety/quit date alcohol: 4 Former alcohol use details: QUIT 1965 Household members: spouse Marital status: Number of children: 0 service: Yes Current occupational status: disabled History of recent travel: No Physical Exam Const: COMMON NORMALS: no acute distress, patient oriented x3 and healthy appearing HENMT: COMMON NORMALS: normocephalic and atraumatic HEAD & SCALP: normocephalic and atraumatic Eye: COMMON NORMALS: Equal, round and reactive pupils present and EOMs intact bilaterally PUPIL: Yes Equal, round and reactive pupils present Neck/C-Spine: COMMON NORMALS: full ROM and supple Chest: COMMONS NORMALS: normal inspection of the chest and normal palpation of entire chest wall Resp: COMMON NORMALS: normal respiratory effort, No retractions, No use of accessory muscles and clear to auscultation bilaterally AUSCULTATION: clear to auscultation bilaterally Cardio: COMMON NORMALS: regular rate, regular rhythm and No murmurs present (Cardio) RATE: regular rate RHYTHM: regular rhythm GI: COMMON NORMALS: Normal to inspection, nondistended, normoactive bowel sounds present, Soft to palpation, non-tender and no masses PALPATION: Yes Soft to palpation Extremity: COMMON NORMALS: normal to inspection and full ROM Neuro: COMMON NORMALS: patient oriented x3, moves all extremities and no focal motor deficits Psych: COMMON NORMALS: mental status grossly normal, Normal thought process present and cooperative THOUGHT PROCESS: Normal thought process present Skin: COMMON NORMALS: no rashes or lesions noted and no wounds GENERAL SKIN EXAM: no rashes or lesions noted Course Vital Signs: Vital signs: Vital Signs Temperature 98.0 F 07/30/21 19:32 Pulse Rate 58 L 07/30/21 19:42 Respiratory Rate 18 07/30/21 19:42 Blood Pressure 158/87 07/30/21 19:42 Pulse Oximetry 95 07/30/21 19:42 MDM - Fall Medical Decision Making Patient presents here with a fall closed head injury head CT here is normal he is well-appearing here and stable for discharge patient is able ambulate out any problems. Lab Data : 07/30/21 19:55 07/30/21 19:[address] 07/30/21 19:46 IMPRESSION: No acute intracranial abnormality is seen. Mild decrease in size of bilateral frontoparietal chronic subdural hygromas. Laboratory Results WBC 10.0 10^3/uL (4.0-10.0) 07/30/21 19:55 RBC 4.69 10^6/uL (4.1-5.3) 07/30/21 19:55 Hgb 14.3 g/dL (11.7-16.6) 07/30/21 19:55 Hct 42.9 % (42.0-52.0) 07/30/21 19: MCV 91.5 fl (80-94) 07/30/21 19:55 MCH 30.5 pg (28.0-34.0) 07/30/21 19: MCHC 33.3 g/dL (30.0-36.0) 07/30/21 19: RDW 13.7 % (12.1-15.1) 07/30/21 19:55 Plt Count 258 10^3/cmm (130-400) 07/30/21 19: MPV 11.3 fL (7.4-10.4) H 07/30/21 19:55 Neut % (Auto) 71.1 % 07/30/21 19:55 Lymph % (Auto) 13.3 % 07/30/21 19:55 Fergus % (Auto) 10.3 % 07/30/21 19:55 Eos % (Auto) 4.3 % 07/30/21 19:55 Baso % (Auto) 0.7 % 07/30/21 19:55 Neut # (Auto) 7.09 10^3/uL (1.8-7.7) 07/30/21 19:55 Lymph # (Auto) 1.3 10^3/uL (0.8-4.8) 07/30/21 19:55 Fergus # (Auto) 1.0 10^3/uL (0.2-0.9) H 07/30/21 19:55 Eos # (Auto) 0.4 10^3/uL (0.0-0.8) 07/30/21 19:55 Baso # (Auto) 0.1 10^3/uL (0.0-0.1) 07/30/21 19:55 Nucleated RBC % (auto) 0 % 07/30/21 19:55 Nucleated RBCs # 0.0 /100WBC 07/30/21 19:55 Sodium 141 mmol/L (136-145) 07/30/21 19:55 Potassium 4.1 mmol/L (3.5-5.1) 07/30/21 19:55 Chloride 106 mmol/L (98-107) 07/30/21 19:55 Carbon Dioxide 24 mmol/L (22-29) 07/30/21 19:55 Anion Gap 15.1 (5-19) 07/30/21 19:55 BUN 20 mg/dL (8-23) 07/30/21 19:55 Creatinine 0.7 mg/dL (0.7-1.2) 07/30/21 19:55 GFR Calculation Not Reportable 07/30/21 19:55 Glucose 98 mg/dL (65-115) 07/30/21 19:55 Calculated Osmolality 295 mOsm/kg (285-295) 07/30/21 19:55 Calcium 10.1 mg/dL (8.5-10.5) 07/30/21 19:55 Total Bilirubin 0.2 mg/dL (0.15-1.2) 07/30/21 19:55 AST 25 U/L (0-40) 07/30/21 19:55 ALT 19 U/L (0-41) 07/30/21 19:55 Alkaline Phosphatase 66 IU/L (40-130) 07/30/21 19:55 Total Protein 7.1 g/dL (6.6-8.7) 07/30/21 19:55 Albumin 4.2 g/dL (3.5-5.2) 07/30/21 19:55 Globulin 2.9 g/dL (1.3-4.6) 07/30/21 19:55 Discharge Plan Discharge Patient Disposition: Home Clinical Impression: CHI (closed head injury) Condition: Stable Prescriptions: No Action cholecalciferol (vitamin D3) 25 mcg (1,000 unit) capsule 25 mcg PO DAILY 0RF ondansetron HCl 8 mg tablet 8 mg PO Q6H PRN (Reason: Nausea) 0RF Excedrin Extra Strength 250-250-65 mg tablet 1 tab PO Q6H PRN (Reason: Pain) 0RF tamsulosin 0.4 mg capsule 0.4 mg PO DAILY 0RF Rx Instructions: SEE PHARMACY COMMENT albuterol sulfate 90 mcg/actuation HFA aerosol inhaler 2 inh INHALATION Q4H PRN (Reason: shortness of breath or wheezing) Qty: 18 0RF Aspir-81 81 mg Tablet,Delayed Release (Dr/Ec) 81 mg PO DAILY 0RF Glucerna Therapeutic Nutrition Liquid 1 ea PO BID 0RF Discharge Orders: Discharge ED (Routine); Ordered 07/30/21 Ordered By: Dori Booker Referrals: Tyshawn Jeffries, [Primary Care Provider] - 1-3 days Discharge Diet: Advance as tolerated Discharge Activity: Resume usual activity Patient Instructions: Head Injury (ED) Coding Level of Care Code ED Area Director for Chg Fwd Exam Comprehensive
[2021-07-30 19:58] LABS: Basophils # 0.1 10^3/uL (0.0-0.1); Basophils % 0.7 %; Eosinophils # 0.4 10^3/uL (0.0-0.8); Eosinophils % 4.3 %; Hematocrit 42.9 % (42.0-52.0); Hemoglobin 14.3 g/dL (11.7-16.6); Lymphocytes # 1.3 10^3/uL (0.8-4.8); Lymphocytes % 13.3 %; Mean Corpuscular HGB Conc 33.3 g/dL (30.0-36.0); Mean Corpuscular Hemoglobin 30.5 pg (28.0-34.0); Mean Corpuscular Volume 91.5 fl (80-94); Mean Platelet Volume 11.3 fL (7.4-10.4); Monocytes % 10.3 %; Neutrophils # 7.09 10^3/uL (1.8-7.7); Neutrophils % 71.1 %; Nucleated Red Blood Cells % 0 %; Platelet Count 258 10^3/cmm (130-400); Red Blood Count 4.69 10^6/uL (4.1-5.3); Red Cell Distribution Width 13.7 % (12.1-15.1)
[2021-07-30] MEDS: acetaminophen 325 mg Tablet 650 MG PO (20:04)
[2021-07-30 20:16] LABS: Alanine Aminotransferase 19 U/L (0-41); Albumin Level 4.2 g/dL (3.5-5.2); Alkaline Phosphatase 66 IU/L (40-130); Anion Gap 15.1 (5-19); Aspartate Amino Transferase 25 U/L (0-40); Blood Urea Nitrogen 20 mg/dL (8-23); Calcium 10.1 mg/dL (8.5-10.5); Carbon Dioxide 24 mmol/L (22-29); Chloride 106 mmol/L (98-107); Globulin 2.9 g/dL (1.3-4.6); Glucose 98 mg/dL (65-115); Osmolality Calculated 295 mOsm/kg (285-295); Potassium 4.1 mmol/L (3.5-5.1); Sodium 141 mmol/L (136-145); Total Bilirubin 0.2 mg/dL (0.15-1.2); Total Protein 7.1 g/dL (6.6-8.7)
[2021-07-30 22:02] VITALS: BP 125/83; PULSE 62; RESP 16; O2SAT 99
== END 2021-07-30 22:08 | disposition home or self-care (01) ==
PROVIDERS: Emergency Provider Emergency Medicine; PCP Emergency Medicine Emergency Medical Services
DX: S09.90XA Unspecified injury of head, initial encounter (principal); W01.198A Fall on same level from slipping, tripping and stumbling with subsequent striking against other object, initial encounter; I10 Essential (primary) hypertension; Z87.891 Personal history of nicotine dependence; Z79.82 Long term (current) use of aspirin
CPT/HCPCS: 70450; 80053; 85025; 99283